=== PATIENT | female | born 1990 | race Caucasian/White ===

== ENCOUNTER 2017-11-03 22:55 | Emergency (ER) | payer MEDICAID, OTHER ==
--- NOTE | 2017-11-04 00:46 | EDM.PDOC ---
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 None when lying. 12 weeks . Has had US and intrauterine . Denies any spotting. No urinary complaints. No nausea vomiting or diarrhea. Normal bowel movements. 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 ED EXAM - Physical Exam Exam: See Below Exam Limited By: No Limitations General Appearance: Alert, No Apparent Distress Eye Exam: Bilateral Eye: EOMI Ears: Normal External Exam Nose: Normal Inspection Throat/Mouth: Normal Inspection Head: Atraumatic, Normocephalic Neck: Normal Inspection Respiratory/Chest: No Respiratory Distress, Lungs Clear, Normal Breath Sounds Cardiovascular: Normal Peripheral Pulses, Regular Rate, Rhythm GI/Abdominal Exam: Normal Bowel Sounds, Soft, Non-Tender Heart Tones: Present Heart Tones per Min: 140 Back Exam: Normal Inspection, Full Range of Motion Extremities: Normal Inspection, Normal Range of Motion. No: Pedal Edema Neurological: Alert, Oriented Psychiatric: Normal Affect, Anxious (mild) Skin Exam: Warm, Dry, Intact, Normal Color Course - Orders/Labs/Meds Labs: Laboratory Tests 11/03/17 Range/Units 22:58 Urine Color Yellow (YELLOW) Urine Appearance Turbid (CLEAR) Urine pH 5.0 (5.0-9.0) Ur Specific [place] >= 1.030 (1.005-1.030) Urine Protein Trace H (NEGATIVE) Urine Glucose (UA) Negative (NEGATIVE) Urine Ketones 80 H (NEGATIVE) Urine Occult Blood Negative (NEGATIVE) Urine Nitrite Negative (NEGATIVE) Urine Bilirubin Small H (NEGATIVE) Urine Urobilinogen 0.2 (0.2-1.0) mg/dL Ur Leukocyte Esterase Negative (NEGATIVE) Urine RBC 0-5 /HPF Urine WBC 0-5 (0-5/HPF) /HPF Ur Epithelial Cells Many H /HPF Urine Bacteria Many H (0-FEW/HPF) /HPF Departure - Departure Time of Disposition: 00:43 Disposition: Home, Self-Care 01 Condition: Good Clinical Impression: First trimester , Abdominal cramping - Discharge Information Instructions: First Trimester of , [id number] Referrals: PCP,None [Primary Care Provider] - Forms: ED Department Discharge Additional Instructions: rest follow up with primary care tomorrow fluids
== END 2017-11-04 00:52 | disposition home or self-care (01) ==
LOC: DL.ED 22:55
DX: O99.89 Other specified diseases and conditions complicating pregnancy, childbirth and the puerperium (principal); R10.30 Lower abdominal pain, unspecified; O99.331 Smoking (tobacco) complicating pregnancy, first trimester; F17.210 Nicotine dependence, cigarettes, uncomplicated; Z3A.12 12 weeks gestation of pregnancy; Z88.1 Allergy status to other antibiotic agents; Z88.5 Allergy status to narcotic agent
CPT/HCPCS: 81001; 99283

== ENCOUNTER 2017-12-27 18:49 | Emergency (ER) | payer OTHER ==
[2017-12-27] MEDS ORDERED: Sodium Chloride 0.9% 1,000 ML IV SCH (19:30)
[2017-12-27] MEDS ORDERED: Sodium Chloride 0.9% 10 ML Syringe FLUSH PRN (19:41)
[2017-12-27] MEDS ORDERED: Metoclopramide 10 MG/2 ML SDV IVPUSH ONE (19:48)
--- NOTE | 2017-12-27 19:58 | EDM.PDOC ---
ED HPI GENERAL MEDICAL PROBLEM - General Chief Complaint: General Stated Complaint: [id number] PREG Time Seen by Provider: 12/27/17 19:22 Source of Information: Reports: Patient, RN, RN Notes Reviewed History Limitations: Reports: No Limitations - History of Present Illness INITIAL COMMENTS - FREE TEXT/NARRATIVE: Patient to the ER with her Grandfather. Pt states that she was at work last night and began with nausea and vomiting at about 2345 while she was at work. Patient states she vomited many times during the night (approximately 20). She states she also began with diarrhea at 1300 today. Patient states she is 20 weeks . She has called and checked in with her FINANCIAL ANALYSIS CONSULTANT office and was told to come to the ER if no improvement. Gus denies fever, chest pain, or SOB. She states she has been having chills, and has a residual cough from having a cold a few weeks ago. Onset: Sudden Onset Date: 12/26/17 Onset Time: 23:45 Duration: Constant Severity: Moderate Associated Symptoms: Reports: Fever/Chills, Loss of Appetite, Nausea/Vomiting Lower Abdomen Pain Score (Numeric/FACES): 3 - Related Data Allergies Allergy/AdvReac Type Severity Reaction Status Date / Time amoxicillin Allergy Cannot Verified 12/27/17 19:04 Remember cephalexin Allergy Hives Verified 12/27/17 19:04 codeine Allergy Hives Verified 12/27/17 19:04 Home Meds: Home Meds . [No Known Home Meds] 11/03/17 [History] Past Medical History HEENT History: Reports: Impaired Vision Other HEENT History: wears corrective lenses Cardiovascular History: Reports: None Respiratory History: Reports: None Gastrointestinal History: Reports: None Genitourinary History: Reports: None FINANCIAL ANALYSIS CONSULTANT History: Reports: Other (See Below) Other OB/BYN History: pre eclampsia. 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 ED EXAM, GENERAL - Physical Exam Exam: See Below Exam Limited By: No Limitations General Appearance: Alert, WD/WN, No Apparent Distress Eye Exam: Bilateral Eye: EOMI, Normal Inspection, PERRL Ears: Normal External Exam, Hearing Grossly Normal Nose: Normal Inspection Throat/Mouth: Normal Inspection, Normal Voice, No Airway Compromise Head: Atraumatic, Normocephalic Neck: Normal Inspection, Supple, Non-Tender, Full Range of Motion Respiratory/Chest: No Respiratory Distress, Lungs Clear, Normal Breath Sounds, No Accessory Muscle Use, Chest Non-Tender Cardiovascular: Normal Peripheral Pulses, Regular Rate, Rhythm, No Edema, No Gallop, No JVD, No Murmur, No Rub Peripheral Pulses: 2+: Radial (L), Radial (R) GI/Abdominal: Normal Bowel Sounds, Soft, No Organomegaly, No Distention, No Abnormal Bruit, No Mass, Tender (Female) Exam: Deferred Rectal (Female) Exam: Deferred Back Exam: Normal Inspection, Full Range of Motion, NT Extremities: Normal Inspection, Normal Range of Motion, Non-Tender, Normal Capillary Refill, No Pedal Edema Neurological: Alert, Oriented, CN II-XII Intact, Normal Cognition, Normal Gait, Normal Reflexes, No Motor/Sensory Deficits Psychiatric: Normal Affect, Normal Mood Skin Exam: Warm, Dry, Intact, Normal Color, No Rash Lymphatic: No Adenopathy Course - Vital Signs Last Recorded V/S: Last Vital Signs Temp 98.2 F 12/27/17 18:55 Pulse 88 12/27/17 18:55 Resp 18 12/27/17 18:55 BP 131/75 12/27/17 18:55 Pulse Ox 100 12/27/17 18:55 - Orders/Labs/Meds Orders: Active Orders 24 hr Category Date Time Status Peripheral IV Care [RC] . DIRECTED Care 12/27/17 19:41 Active CULTURE STOOL [RM] Stat Lab 12/27/17 19:14 Received SHIGA TOXIN 1 & 2 [MREF] Stat Lab 12/27/17 19:14 Received UA W/MICROSCOPIC [URIN] Stat Lab 12/27/17 21:14 Ordered Sodium Chloride 0.9% [Normal Saline] 1,000 ml Med 12/27/17 19:30 Active IV ASDIRECTED Sodium Chloride 0.9% [Saline Flush] Med 12/27/17 19:41 Active 10 ml FLUSH ASDIRECTED PRN Peripheral IV Insertion Adult [OM.PC] Stat Oth 12/27/17 19:41 Ordered Medication Orders Sodium Chloride (Normal Saline) 1,000 mls @ 999 mls/hr IV ASDIRECTED NITIN Last Admin: 12/27/17 19:40 Dose: 999 mls/hr Sodium Chloride (Saline Flush) 10 ml FLUSH ASDIRECTED PRN PRN Reason: Keep Vein Open Last Admin: 12/27/17 19:49 Dose: 10 ml Labs: Laboratory Tests 12/27/17 12/27/17 12/27/17 Range/Units 19:20 19:20 21:14 WBC 9.3 (5.0-10.0) 10^3/uL RBC 4.46 (4.2-5.4) 10^6/uL Hgb 12.3 (12.0-16.0) g/dL Hct 36.7 L (37.0-47.0) % MCV 82.3 (80-100) fL MCH 27.6 (27.0-34.0) pg MCHC 33.5 (33.0-35.0) g/dL Plt Count 158 (150-450) 10^3/uL Neut % (Auto) 83.3 H (42.2-75.2) % Lymph % (Auto) 10.8 L (20.5-50.1) % [place] % (Auto) 5.3 (2-8) % Eos % (Auto) 0.5 L (1.0-3.0) % Baso % (Auto) 0.1 (0.0-1.0) % Sodium 132 L (135-145) mmol/L Potassium 3.5 L (3.6-5.0) mmol/L Chloride 100 L (101-111) mmol/L Carbon Dioxide 22.0 (21.0-31.0) mmol/L Anion Gap 13.5 BUN 7 (7-18) mg/dL Creatinine 0.4 L (0.6-1.3) mg/dL Est Cr Clr Drug Dosing 207.26 mL/min Estimated GFR (MDRD) > 60 BUN/Creatinine Ratio 17.50 Glucose 87 (74-105) mg/dL Calcium 8.7 (8.4-10.2) mg/dl Total Bilirubin 0.6 (0.2-1.0) mg/dL AST 51 H (10-42) IU/L ALT 34 (10-60) IU/L Alkaline Phosphatase 150 H (42-121) IU/L Total Protein 6.9 (6.7-8.2) g/dl Albumin 3.1 L (3.2-5.5) g/dl Globulin 3.8 Albumin/Globulin Ratio 0.82 Urine Color Dark yellow (YELLOW) Urine Appearance Slightly cloudy (CLEAR) Urine pH 6.0 (5.0-9.0) Ur Specific [place] >= 1.030 (1.005-1.030) Urine Protein 30 H (NEGATIVE) Urine Glucose (UA) Negative (NEGATIVE) Urine Ketones >=160 H (NEGATIVE) Urine Occult Blood Negative (NEGATIVE) Urine Nitrite Negative (NEGATIVE) Urine Bilirubin Moderate H (NEGATIVE) Urine Urobilinogen 0.2 (0.2-1.0) mg/dL Ur Leukocyte Esterase Negative (NEGATIVE) Urine RBC 0-5 /HPF Urine WBC 0-5 (0-5/HPF) /HPF Ur Epithelial Cells Many H /HPF Amorphous Sediment Rare (0/HPF) /HPF Urine Bacteria Moderate H (0-FEW/HPF) /HPF Urine Mucus Many H /LPF Meds: Medications Generic Name Dose Route Start Last Admin Trade Name Freq PRN Reason Stop Dose Admin Sodium Chloride 1,000 mls @ 999 mls/hr 12/27/17 19:30 12/27/17 19:40 Normal Saline IV 999 mls/hr ASDIRECTED NITIN Administration Sodium Chloride 10 ml 12/27/17 19:41 12/27/17 19:49 Saline Flush FLUSH 10 ml ASDIRECTED PRN Administration Keep Vein Open Discontinued Medications Generic Name Dose Route Start Last Admin Trade Name Freq PRN Reason Stop Dose Admin Sodium Chloride 1,000 mls @ 999 mls/hr 12/27/17 20:42 12/27/17 20:44 Normal Saline IV 12/27/17 21:42 999 mls/hr .BOLUS ONE Administration Metoclopramide HCl 10 mg 12/27/17 19:48 12/27/17 19:56 Reglan IVPUSH 12/27/17 19:49 10 mg ONETIME ONE Administration - Re-Assessments/Exams Free Text/Narrative Re-Assessment/Exam: 12/27/17 19:59 heart tones noted at 145-155. Departure - Departure Time of Disposition: 22:00 Disposition: Home, Self-Care 01 Condition: Fair Clinical Impression: Gastroenteritis Qualifiers: Weeks of gestation: 20 weeks Qualified Code(s): Z3A.20 - 20 weeks gestation of - Discharge Information Instructions: Viral Gastroenteritis, Adult, [id number], Food Choices to Help Relieve Diarrhea, Adult, Second Trimester of , [id number] Forms: ED Department Discharge Additional Instructions: Sips of water Rest Follow up with your FINANCIAL ANALYSIS CONSULTANT for nausea medication - My Orders Last 24 Hours: My Active Orders 12/27/17 19:14 CULTURE STOOL [RM] Stat SHIGA TOXIN 1 & 2 [MREF] Stat 12/27/17 19:30 Sodium Chloride 0.9% [Normal Saline] 1,000 ml IV ASDIRECTED 12/27/17 19:41 Peripheral IV Care [RC] . DIRECTED Sodium Chloride 0.9% [Saline Flush] 10 ml FLUSH ASDIRECTED PRN Peripheral IV Insertion Adult [OM.PC] Stat 12/27/17 21:14 UA W/MICROSCOPIC [URIN] Stat - Assessment/Plan Last 24 Hours: My Active Orders 12/27/17 19:14 CULTURE STOOL [RM] Stat SHIGA TOXIN 1 & 2 [MREF] Stat 12/27/17 19:30 Sodium Chloride 0.9% [Normal Saline] 1,000 ml IV ASDIRECTED 12/27/17 19:41 Peripheral IV Care [RC] . DIRECTED Sodium Chloride 0.9% [Saline Flush] 10 ml FLUSH ASDIRECTED PRN Peripheral IV Insertion Adult [OM.PC] Stat 12/27/17 21:14 UA W/MICROSCOPIC [URIN] Stat
[2017-12-27 19:59] LABS: CHLORIDE,CL 100 mmol/L (101-111); SODIUM,NA 132 mmol/L (135-145)
[2017-12-27] MEDS ORDERED: Sodium Chloride 0.9% 1,000 ML IV ONE (20:42)
== END 2017-12-27 22:10 | disposition home or self-care (01) ==
LOC: DL.ED 18:49
DX: O99.612 Diseases of the digestive system complicating pregnancy, second trimester (principal); K52.9 Noninfective gastroenteritis and colitis, unspecified; Z88.1 Allergy status to other antibiotic agents; Z88.5 Allergy status to narcotic agent; Z87.891 Personal history of nicotine dependence; Z3A.20 20 weeks gestation of pregnancy
CPT/HCPCS: 36415; 80053; 81001; 85025; 87045; 87899; 96361; 96374; 99284; J2765; J7030; J7050; 87046